=== PATIENT | female | born 1995 | race Caucasian/White ===

== ENCOUNTER 2020-06-04 11:01 | Emergency (ER) | payer OTHER, SELFPAY ==
[2020-06-04 11:15] VITALS: BP 150/99; PULSE 107; RESP 20; TEMP 36.9; O2SAT 100
--- NOTE | 2020-06-04 11:41 | ED.FEMALEGU ---
HPI - Female Genitourinary General Chief complaint: Urogenital-Female Stated complaint: pos uti Time Seen by Provider: 06/04/20 11:31 Source: patient and RN notes reviewed Mode of arrival: ambulatory Limitations: no limitations History of Present Illness HPI Narrative: Patient presents today complaining of a 2-day history of dysuria and urgency. Denies hematuria, abdominal pain, flank pain, fever, vaginal discharge. She has been taking Azo, which does help with symptoms, but they return once the Azo wears off. Last dose of Azo was this morning prior to arrival. Patient also states that she would like STD testing. She has been having unprotected intercourse recently with a new partner. History of PID and chlamydia. Review of patient's chart shows she was on Macrobid last month for UTI. MD elicited complaint: dysuria Related Data Home Medications Medication Instructions Recorded Confirmed cetirizine 10 mg PO DAILY 06/04/20 06/04/20 lisdexamfetamine [Vyvanse] 30 mg PO DAILY 06/04/20 06/04/20 montelukast 10 mg PO DAILY 06/04/20 06/04/20 Allergies Allergy/AdvReac Type Severity Reaction Status Date / Time amoxicillin Allergy Mild HIVES Verified 06/04/20 11:20 Review of Systems Review of Systems: Narrative: CONSTITUTIONAL: Denies body aches, fever, chills, or sweats. EYES: Denies visual changes, redness, or discharge. ENT: Denies rhinorrhea, congestion, sore throat, or otalgia. CARDIOVASCULAR: Denies chest pain, palpitations, or edema. RESPIRATORY: Denies cough or dyspnea. GASTROINTESTINAL: Denies abdominal pain, nausea, vomiting, or diarrhea. GENITOURINARY: Denies hematuria. + Dysuria, urgency SKIN: Denies rash, itching, or wounds. MUSCULOSKELETAL: Denies back pain, joint pain, or myalgia. NEUROLOGIC: Denies headache, numbness, tingling, or weakness. PSYCH: Denies depression or anxiety. [facility] Past Medical History Medical History (Updated 06/04/20 @ 11:45 by Michelle Alaniz, [facility], ) History of chlamydia Pelvic inflammatory disease Family History Family History (Updated 09/10/16 @ 23:56 by DOCTOR UNKNOWN) Father Hypertension Mother Hypertension Grandparent Carcinoma of colon Family history of coronary artery disease, Onset Age: 47 Social History Social History Smoking status: Never smoker Second hand tobacco smoke exposure: No Comments At time of signature, I have reviewed and agree with nursing past medical, surgical, social and family history unless otherwise noted. Please see nursing chart for further information. There is no relevant family history pertinent to the presenting complaint Exam Narrative: Exam Narrative: GENERAL: Well-appearing, well-nourished, and in no acute distress. HEAD: Normocephalic, atraumatic. EYES: EOMI. No redness or drainage. Conjunctivae normal. ENT: Mucous membranes pink and moist. NECK: Normal AROM. CHEST: No respiratory distress. Clear to auscultation. HEART: Regular rate and rhythm. No murmur appreciated. Normal peripheral pulses. ABDOMEN: Soft, nontender, nondistended, normal active bowel sounds. -CVAT MUSCULOSKELETAL: No bony tenderness. EXTREMITIES: Normal range of motion. No edema. SKIN: Warm, dry, no rash. Capillary refill normal. Normal skin turgor. NEURO: No focal deficits. Alert and oriented x3. Gait steady. PSYCH: Normal affect. No signs of depression or anxiety. Course Vital Signs Vital signs: Vital Signs Temperature 98.5 F 06/04/20 11:15 Pulse Rate 107 H 06/04/20 11:15 Respiratory Rate 06/04/20 11:15 Blood Pressure 150/99 H 06/04/20 11:15 Pulse Oximetry 100 06/04/20 11:15 Temperature 98.5 F 06/04/20 11:15 Pulse Rate 107 H 06/04/20 11:15 Respiratory Rate 20 06/04/20 11:15 Blood Pressure 150/99 H 06/04/20 11:15 Pulse Oximetry 100 06/04/20 11:15 Reviewed. Pt has been instructed to follow up with her PCP regarding her elevated blood pressure today. MDM - Female Genitourinary
== END 2020-06-04 11:49 | disposition home or self-care (01) ==
PROVIDERS: Emergency Provider Nurse Practitioner; PCP Family Medicine Sports Medicine
DX: N30.00 Acute cystitis without hematuria (principal)
CPT/HCPCS: 81003; 87077; 87086; 87088; 87186; 87491; 87591; 87661; 99213; G0463